=== PATIENT | male | born 1980 ===

== ENCOUNTER 2017-01-17 17:58 | Emergency (ER) | payer BC ==
[2017-01-17 18:19] LABS: URINE APPEARANCE CLEAR; URINE BILIRUBIN NEGATIVE (NEGATIVE); URINE BLOOD LARGE (NEGATIVE); URINE COLOR YELLOW; URINE GLUCOSE (UA) NEGATIVE (NEGATIVE); URINE KETONE NEGATIVE (NEGATIVE); URINE LEUKOCYTE ESTERASE NEGATIVE (NEGATIVE); URINE NITRITE NEGATIVE (NEGATIVE); URINE PROTEIN NEGATIVE (NEGATIVE); URINE UROBILINOGEN 0.2 E.U./dL (0.20 - 1.00)
[2017-01-17] MEDS ORDERED: ONDANSETRON HCL IV 4 MG/2 ML VIAL IV ONE (18:22)
[2017-01-17] MEDS ORDERED: 0.9 % SODIUM CHLORIDE 1,000 ML BAG IV ONE (18:22)
[2017-01-17 18:23] LABS: URINE BACTERIA NONE SEEN; URINE EPITHELIAL CELLS NONE SEEN (FEW); URINE WBC NONE SEEN (0-2/hpf)
[2017-01-17] MEDS ORDERED: MORPHINE SULFATE 5 MG/ML PFS IVP ONE (18:23)
[2017-01-17] MEDS ORDERED: KETOROLAC 30 MG/ML VIAL IVP ONE (18:23)
--- NOTE | 2017-01-17 18:26 | Emergency Department Record ---
History of Present Illness - General Source: Patient Mode of Arrival: Ambulatory Limitations: No limitations - History of Present Illness Initial Comments: 36 yo male presents with right flank pain that started around 10am. Initially the pain would come and go. Now the pain is constant. It is sharp. He has some associated nausea. No visible hematuria. 2 weeks ago he had similar pain last only about 20 minutes. No history of abdominal surgery. He was seen in the [facility] care and and referred to the ED. MD Complaint: Back pain Onset/Timin -: Days(s) Similar Symptoms Previously: Yes Place: Work Radiation: Groin, Flank Severity: Severe Severity scale (1-10): 9 Quality: Aching Consistency: Constant Improves With: None Worsens With: None Context: Unknown Associated Symptoms: Denies other symptoms <BOLA PHILLIPS - Last Filed: 01/17/17 19:05> <Barbara Martínez - Last Filed: 01/17/17 19:48> - General Chief Complaint: Back Pain/Injury Stated Complaint: BACK PAIN Time Seen by Provider: 01/17/17 18:18 - Related Data Previous Rx's Medication Instructions Recorded Hydrocodone/Acetaminophen [Campbell 1 each PO Q6HR #20 tablet 01/17/17 5-325 Tablet] Tamsulosin HCl [Flomax] 0.4 mg PO DAILY #7 cap.er.24h 01/17/17 Allergies Allergy/AdvReac Type Severity Reaction Status Date / Time No Known Allergies Allergy no Verified 01/17/17 18:04 allergies Travel Screening - Travel/Exposure Within Last 30 Days Have you traveled within the last 30 days?: No <BOLA PHILLIPS - Last Filed: 01/17/17 19:05> Review of Systems Constitutional: Denies: Chills, Fever, Malaise, Weakness Eyes: Denies: Eye discharge ENT: Denies: Congestion, Throat pain Respiratory: Denies: Cough, Dyspnea, Hemoptysis, Stridor, Wheezes Cardiovascular: Denies: Chest pain, Palpitations, Syncope Endocrine: Denies: Fatigue Gastrointestinal: Reports: Abdominal pain, Nausea. Denies: Diarrhea, Vomiting Genitourinary: Denies: Dysuria, Frequency, Hematuria, Incontinence, Retention, Testicular pain, Urgency Musculoskeletal: Reports: As per HPI, Back pain. Denies: Arthralgia Skin: Denies: Bruising, Change in color, Lesions, Rash Neurological: Denies: Headache, Numbness, Vertigo, Weakness Psychiatric: Denies: Anxiety Hematological/Lymphatic: Denies: Blood Clots, Easy bleeding, Easy bruising, Swollen glands <BOLA PHILLIPS - Last Filed: 01/17/17 19:05> Past Medical History - SOCIAL HISTORY Smoking Status: Never smoker Alcohol Use: None Drug Use: None - RESPIRATORY Hx Respiratory Disorders: No - CARDIOVASCULAR Hx Cardio Disorders: No - NEURO Hx Neuro Disorders: No - GI Hx GI Disorders: No - Hx Genitourinary Disorders: No - ENDOCRINE Hx Endocrine Disorders: No - MUSCULOSKELETAL Hx Musculoskeletal Disorders: No - PSYCH Hx Psych Problems: No - HEMATOLOGY/ONCOLOGY Hx Hematology/Oncology Disorders: No <BOLA PHILLIPS - Last Filed: 01/17/17 19:05> Family Medical History Any Significant Family History?: No <BOLA PHILLIPS - Last Filed: 01/17/17 19:05> Physical Exam - General General Appearance: Alert, Oriented x3, Cooperative, No acute distress Limitations: No limitations - Head Head exam: Normal inspection - Eye Eye exam: Normal appearance, PERRL. negative: Conjunctival injection, Periorbital swelling - ENT ENT exam: Normal exam, Mucous membranes moist Ear exam: Normal external inspection Nasal Exam: Normal inspection Mouth exam: Normal external inspection - Neck Neck exam: Normal inspection - Respiratory Respiratory exam: Normal lung sounds bilaterally. negative: Respiratory distress - Cardiovascular Cardiovascular Exam: Regular rate, Normal rhythm, Normal heart sounds Peripheral Pulses: 2+: Radial (R), Radial (L) - GI/Abdominal GI/Abdominal exam: Soft, Normal bowel sounds. negative: Distended, Guarding, Rebound, Rigid, Tenderness - Rectal Rectal exam: Deferred - exam: Deferred - Extremities Extremities exam: Normal inspection, Full ROM, Normal capillary refill. negative: Calf tenderness, Pedal edema, Tenderness - Back Back exam: Reports: Normal inspection, Full ROM. Denies: CVA tenderness (R), CVA tenderness (L), Muscle spasm, Paraspinal tenderness, Rash noted, Tenderness , Vertebral tenderness - Neurological Neurological exam: Alert, Normal gait, Oriented X3 - Psychiatric Psychiatric exam: Anxious (due to pain) - Skin Skin exam: Dry, Intact, Normal color, Warm <BOLA PHILLIPS - Last Filed: 01/17/17 19:05> Course Vital Signs 01/17/17 18:05 Temperature 97.9 F Pulse Rate 65 Respiratory 20 Rate Blood Pressure 168/108 Pulse Ox 97 - Reevaluation(s) Reevaluation #1: the UA positive for blood The case was signed out to Dr Martínez 01/17/17 19:05 <BOLA PHILLIPS - Last Filed: 01/17/17 19:05> Vital Signs 01/17/17 01/17/17 18:05 19:36 Temperature 97.9 F Pulse Rate 65 Pulse Rate [ 83 Pulse Ox Probe] Respiratory 20 20 Rate Blood Pressure 168/108 Blood Pressure 138/83 [Left Arm] Pulse Ox 97 96 <Barbara Martínez - Last Filed: 01/17/17 19:48> Medical Decision Making - Lab Data Result diagrams: 01/17/17 18:51 01/17/17 18:45 Lab Results 01/17/17 Range/Units 18:15 Urine Color Yellow Urine Appearance Clear Urine pH 5.5 (5.0-8.0) Ur Specific [place] 1.025 (1.002-1.030) Urine Protein Negative (NEGATIVE) Urine Glucose (UA) Negative (NEGATIVE) Urine Ketones Negative (NEGATIVE) Urine Blood Large H (NEGATIVE) Urine Nitrite Negative (NEGATIVE) Urine Bilirubin Negative (NEGATIVE) Urine Urobilinogen 0.2 (0.20 - 1.00) E.U./dL Ur Leukocyte Esterase Negative (NEGATIVE) <BOLA PHILLIPS - Last Filed: 01/17/17 19:05> - Lab Data Result diagrams: 01/17/17 18:51 01/17/17 18:45 Lab Results 01/17/17 01/17/17 01/17/17 Range/Units 18:15 18:45 18:51 WBC 9.1 (4.2-12.2) K/uL RBC 5.33 (4.40-5.70) M/uL Hgb 15.1 (14.0-18.0) gm/dl Hct 44.7 (42.0-52.0) % MCV 83.9 (81-97) fl MCH 28.3 (27-33) pg MCHC 33.8 (32-36) g/dl RDW 13.5 (11.5-14.5) % Plt Count 326 (130-400) K/uL MPV 9.8 (7.4-10.4) fl Gran % 71.2 (47-80) % Lymphocytes % 17.5 (16-45) % Monocytes % 10.1 H (0-9) % Eosinophils % 0.9 (0-6) % Basophils % 0.3 (0-6) % Sodium 141 (136-145) mmol/L Potassium 3.5 (3.4-4.5) mmol/L Chloride 104 (98-107) mmol/L Carbon Dioxide 22.0 (22-29) mmol/L Anion Gap 15.0 (7-16) BUN 42.4 (12.6-42.6) mg/dL Creatinine 1.0 (0.7-1.2) mg/dL Estimated GFR > 60 mL/min Random Glucose 109 (74-109) mg/dL Calcium 8.9 (8.6-10.0) mg/dL Total Bilirubin 0.20 (0.2-1.0) mg/dL Direct Bilirubin 0.2 (0-0.3) mg/dL AST 24 (10.0-50.0) U/L ALT 33 (<41) U/L Alkaline Phosphatase 91 (40-129) U/L Total Protein 7.4 (6.6-8.7) g/dL Albumin 4.6 (4.0-5.0) g/dL Lipase 33 (13-60) U/L Urine Color Yellow Urine Appearance Clear Urine pH 5.5 (5.0-8.0) Ur Specific [place] 1.025 (1.002-1.030) Urine Protein Negative (NEGATIVE) Urine Glucose (UA) Negative (NEGATIVE) Urine Ketones Negative (NEGATIVE) Urine Blood Large H (NEGATIVE) Urine Nitrite Negative (NEGATIVE) Urine Bilirubin Negative (NEGATIVE) Urine Urobilinogen 0.2 (0.20 - 1.00) E.U./dL Ur Leukocyte Esterase Negative (NEGATIVE) Urine RBC Too numerous to cnt (NONE SEEN) Urine WBC None seen (0-2/hpf) Ur Epithelial Cells None seen (FEW) Urine Bacteria None seen <Barbara Martínez - Last Filed: 01/17/17 19:48> Disposition <BOLA PHILLIPS - Last Filed: 01/17/17 19:05> Disposition: Discharge <Barbara Martínez - Last Filed: 01/17/17 19:48> Clinical Impression: Renal lithiasis Hydronephrosis Qualifiers: Hydronephrosis type: with ureteral calculous obstruction Qualified Code(s): N13.2 - Hydronephrosis with renal and ureteral calculous obstruction Disposition: Home, Self-Care Condition: (1) Good Instructions: Kidney Stones (ED), How to Strain Your Urine (ED) Additional Instructions: follow up with dr medina. return sooner if worse. push fluids. Prescriptions: Hydrocodone/Acetaminophen [Campbell 5-325 Tablet] 1 each PO Q6HR #20 tablet Tamsulosin HCl [Flomax] 0.4 mg PO DAILY #7 cap.er.24h Referrals: GONZALEZ BROWN M.D. [MEDICAL DOCTOR] - Forms: Patient Portal Access Quality - Blood Pressure Screening Does Patient Have Any of the Following: No Blood Pressure Classification: Hypertensive Reading Systolic Measurement: 168 Diastolic Measurement: 108 <BOLA PHILLIPS - Last Filed: 01/17/17 19:05> - Quality Measures Quality Measures: N/A - Blood Pressure Screening Does Patient Have Any of the Following: No Blood Pressure Classification: Hypertensive Reading Systolic Measurement: 168 Diastolic Measurement: 108 Screening for High Blood Pressure: < First Hypertensive BP, F/U Documented > [ G8950] First Hypertensive Follow-up Interventions: Follow-up with rescreen GT 1 day and LT 4 weeks. <Barbara Martínez - Last Filed: 01/17/17 19:48>
[2017-01-17 19:10] LABS: BASO % 0.3 % (0-6); EOS % 0.9 % (0-6); GRAN % 71.2 % (47-80); HEMATOCRIT 44.7 % (42.0-52.0); HEMOGLOBIN 15.1 gm/dl (14.0-18.0); LYMPH % 17.5 % (16-45); MEAN CELL VOLUME 83.9 fl (81-97); MEAN CORPUSCULAR HEMOGLOBIN 28.3 pg (27-33); MEAN CORPUSCULAR HGB CONC 33.8 g/dl (32-36); MEAN PLATELET VOLUME 9.8 fl (7.4-10.4); MONO % 10.1 % (0-9); PLATELET COUNT 326 K/uL (130-400); RED BLOOD COUNT 5.33 M/uL (4.40-5.70); RED CELL DISTRIBUTION WIDTH 13.5 % (11.5-14.5); WHITE BLOOD COUNT W/O DIFF 9.1 K/uL (4.2-12.2)
[2017-01-17 19:24] LABS: ALBUMIN 4.6 g/dL (4.0-5.0); ALKALINE PHOSPHATASE 91 U/L (40-129); ALT/SGPT 33 U/L (<41); AST/SGOT 24 U/L (10.0-50.0); BILIRUBIN,DIRECT 0.2 mg/dL (0-0.3); BLOOD UREA NITROGEN 42.4 mg/dL (12.6-42.6); EST GLOMERULAR FILTRATION RATE > 60 mL/min; GLUCOSE,RANDOM 109 mg/dL (74-109); LIPASE 33 U/L (13-60); TOTAL PROTEIN 7.4 g/dL (6.6-8.7)
--- NOTE | 2017-01-18 08:03 | CT SCAN REPORT ---
EXAM: CT OF THE ABDOMEN AND PELVIS WITHOUT CONTRAST HISTORY: LOW BACK PAIN. TECHNIQUE: Sequential axial images were obtained from the diaphragms through the ischiorectal fossa without intravenous or oral administration of contrast material. Sagittal and coronal reformatted images were performed. FINDINGS: There is a 4.8 mm stone in the proximal right ureter. This produces moderate right hydronephrosis. There is minimal perinephric fat stranding. The left kidney appears normal. The liver, gallbladder, pancreas, and spleen appear normal. The small bowel appears normal. The appendix is visualized and appears normal. The colon appears normal. The urinary bladder appears normal. IMPRESSION: 4.8 MM OBSTRUCTING CALCULUS IN THE RIGHT PROXIMAL URETER. THIS PRODUCES MODERATE RIGHT HYDRONEPHROSIS. JOB NUMBER: [id number] MTDD
== END 2017-01-17 20:15 | disposition home or self-care (01) ==
LOC: ER 17:58
DX: N13.2 Hydronephrosis with renal and ureteral calculous obstruction (principal); R11.0 Nausea
CPT/HCPCS: 99284 ×2; 96374; 96361; 83690; 85025; 80076; 80048; 81001; 74176; J1885; J2405; J2270; J7030

== ENCOUNTER 2017-01-22 08:19 | Day surgery (SDC) | payer BC ==
[2017-01-22] MEDS ORDERED: HYDROMORPHONE HCL 1MG/ML **SYRINGE IVP ONE (08:26)
[2017-01-22] MEDS ORDERED: 0.9 % SODIUM CHLORIDE 1000ML 1,000 ML IV ONE (08:26)
[2017-01-22] MEDS ORDERED: KETOROLAC 30 MG/ML VIAL IVP ONE ×2 (08:26→14:00)
[2017-01-22] MEDS ORDERED: ONDANSETRON HCL IV 4 MG/2 ML VIAL IV ONE (08:26)
--- NOTE | 2017-01-22 08:28 | Emergency Department Record ---
History of Present Illness - General Stated Complaint: KIDNEY STONE PAIN Time Seen by Provider: 01/22/17 08:20 Source: Patient, Family Mode of Arrival: Ambulatory Limitations: No limitations - History of Present Illness Initial Comments: 36 yo male presents with flank pain. He was recently diagnosed with a renal stone. He has had right sided pain for about 5 days. He was diagnosed with a 4.8 mm stone on the first visit. No fevers or chills. The pain was improved over the weekend but returned Saturday night. No retention. No incontinence. MD Complaint: Flank pain (recent renal stone) -: Days(s) Location: R Flank Radiation: R flank Migration to: R Flank Severity: Severe Quality: Aching, Sharp Improves With: Nothing Worsens With: Nothing Context: Other (Recent stone diagnosis) Associated Symptoms: Denies other symptoms - Related Data Previous Rx's Medication Instructions Recorded Tamsulosin HCl [Flomax] 0.4 mg PO DAILY #7 cap.er.24h 01/17/17 Allergies Allergy/AdvReac Type Severity Reaction Status Date / Time No Known Allergies Allergy no Verified 01/17/17 18:04 allergies Review of Systems Constitutional: Denies: Chills, Fever, Malaise, Weakness Eyes: Denies: Eye discharge ENT: Denies: Congestion, Throat pain Respiratory: Denies: Cough, Dyspnea Cardiovascular: Denies: Chest pain, Syncope Endocrine: Denies: Fatigue Gastrointestinal: Reports: As per HPI, Abdominal pain, Nausea. Denies: Diarrhea , Vomiting Genitourinary: Denies: Dysuria, Frequency, Hematuria Musculoskeletal: Reports: As per HPI, Back pain. Denies: Arthralgia Skin: Denies: Bruising, Change in color, Rash Neurological: Denies: Headache, Numbness, Weakness Psychiatric: Denies: Anxiety Hematological/Lymphatic: Denies: Blood Clots, Easy bleeding, Easy bruising, Swollen glands Past Medical History - SOCIAL HISTORY Smoking Status: Never smoker Drug Use: None - RESPIRATORY Hx Respiratory Disorders: No - CARDIOVASCULAR Hx Cardio Disorders: No - NEURO Hx Neuro Disorders: No - GI Hx GI Disorders: No - Hx Genitourinary Disorders: No - ENDOCRINE Hx Endocrine Disorders: No - MUSCULOSKELETAL Hx Musculoskeletal Disorders: No - PSYCH Hx Psych Problems: No - HEMATOLOGY/ONCOLOGY Hx Hematology/Oncology Disorders: No Physical Exam - General General Appearance: Alert, Oriented x3, Cooperative, No acute distress Limitations: No limitations - Head Head exam: Normal inspection - Eye Eye exam: Normal appearance. negative: Conjunctival injection, Periorbital swelling - ENT ENT exam: Normal exam, Mucous membranes moist Ear exam: Normal external inspection Nasal Exam: Normal inspection Mouth exam: Normal external inspection - Neck Neck exam: Normal inspection - Respiratory Respiratory exam: Normal lung sounds bilaterally. negative: Respiratory distress - Cardiovascular Cardiovascular Exam: Regular rate, Normal rhythm, Normal heart sounds Peripheral Pulses: 2+: Radial (R), Radial (L) - GI/Abdominal GI/Abdominal exam: negative: Soft - Rectal Rectal exam: Deferred - exam: Deferred - Extremities Extremities exam: Normal inspection, Full ROM, Normal capillary refill. negative: Tenderness - Back Back exam: Reports: Normal inspection, Full ROM. Denies: Muscle spasm, Rash noted, Tenderness - Neurological Neurological exam: Alert, Normal gait, Oriented X3 - Psychiatric Psychiatric exam: Normal affect, Normal mood. negative: Agitated, Anxious - Skin Skin exam: Dry, Intact, Normal color, Warm Course - Reevaluation(s) Reevaluation #1: EMR reviewed On 01/17 the patient had a 4.8mm right proximal stone Last ate 7am an apple. 01/22/17 08:33 Reevaluation #2: The CBC and BMP were reviewed WBC count is 12.7 No fever or tachycardia on the vitals 01/22/17 09:21 I discussed the XR with the radiologist. The still appears to be a stone at about the L3 level Urology will be consulted Message was left with Dr Odonnell given he has [facility] today Consult placed as well in the computer 01/22/17 09:27 The UA is negative for acute infection 01/22/17 09:[address] Odonnell of Urology. He will see the patient this afternoon for possible stent placement in the OR The OR was notified of need for cysto with right renal stent placement 01/22/17 10:45 OR time 1:30pm. 01/22/17 11:44 Medical Decision Making - Lab Data Result diagrams: 01/22/17 08:40 01/22/17 08:40 Disposition Disposition: Discharge Clinical Impression: Renal lithiasis Disposition: Still a Patient at [facility] Condition: (1) Good Time of Disposition: 16:19 Quality - Quality Measures Quality Measures: N/A - Blood Pressure Screening Blood Pressure Classification: Hypertensive Reading Systolic Measurement: 186 Diastolic Measurement: 101 Screening for High Blood Pressure: < Pre-Hypertensive BP, F/U Documented > [ G8950] Pre-Hypertensive Follow-up Interventions: Referral to alternative/primary care provider.
[2017-01-22 08:53] LABS: HEMATOCRIT 44.8 % (42.0-52.0); HEMOGLOBIN 15.4 gm/dl (14.0-18.0); MEAN CELL VOLUME 82.7 fl (81-97); MEAN CORPUSCULAR HEMOGLOBIN 28.4 pg (27-33); MEAN CORPUSCULAR HGB CONC 34.4 g/dl (32-36); MEAN PLATELET VOLUME 9.7 fl (7.4-10.4); PLATELET COUNT 322 K/uL (130-400); RED BLOOD COUNT 5.42 M/uL (4.40-5.70); WHITE BLOOD COUNT W/O DIFF 12.7 K/uL (4.2-12.2)
[2017-01-22 09:06] LABS: PLATELET ESTIMATE NORMAL (NORMAL)
[2017-01-22 09:12] LABS: BLOOD UREA NITROGEN 28.9 mg/dL (12.6-42.6); CREATININE 1.1 mg/dL (0.7-1.2); EST GLOMERULAR FILTRATION RATE > 60 mL/min; GLUCOSE,RANDOM 119 mg/dL (74-109)
[2017-01-22 09:46] LABS: URINE APPEARANCE CLEAR; URINE BILIRUBIN NEGATIVE (NEGATIVE); URINE BLOOD TRACE-I (NEGATIVE); URINE COLOR YELLOW; URINE GLUCOSE (UA) NEGATIVE (NEGATIVE); URINE KETONE NEGATIVE (NEGATIVE); URINE LEUKOCYTE ESTERASE NEGATIVE (NEGATIVE); URINE NITRITE NEGATIVE (NEGATIVE); URINE PROTEIN NEGATIVE (NEGATIVE); URINE UROBILINOGEN 0.2 E.U./dL (0.20 - 1.00)
[2017-01-22 09:51] LABS: URINE EPITHELIAL CELLS NONE SEEN (FEW); URINE RBC 0 - 2 (NONE SEEN); URINE WBC NONE SEEN (0-2/hpf)
--- NOTE | 2017-01-22 13:22 | RADIOLOGY REPORT ---
EXAM: ABDOMEN HISTORY: PAIN. TECHNIQUE: Supine and upright views of the abdomen were performed. FINDINGS: Nonobstructed bowel gas pattern. There is increased stool throughout the colon. Findings are consistent with constipation. No evidence of free air. IMPRESSION: INCREASED STOOL THROUGHOUT THE COLON. FINDINGS ARE CONSISTENT WITH CONSTIPATION. NO EVIDENCE OF OBSTRUCTION. JOB NUMBER: [id number] MTDD
[2017-01-22] MEDS ORDERED: ONDANSETRON HCL IV 4 MG/2 ML VIAL IVP ONE (14:00)
[2017-01-22] MEDS ORDERED: LIDOCAINE 2% MDV (20MG/ML) 20ML VIAL IV ONE (14:00)
[2017-01-22] MEDS ORDERED: PROPOFOL 10 MG/ML VIAL IV ONE (14:00)
[2017-01-22] MEDS ORDERED: FENTANYL PF 100MCG/2ML VIAL IV ONE (14:00)
[2017-01-22] MEDS ORDERED: MIDAZOLAM HCL 2MG/2ML VIAL IV ONE (14:00)
[2017-01-22] MEDS ORDERED: ACETAMINOPHEN 1,000 MG/100 ML BTL IV ONE (14:39)
[2017-01-22] MEDS ORDERED: CEFAZOLIN 2 Gram 2 GM/50 ML BAG IVPB ONE (14:39)
--- NOTE | 2017-01-23 12:00 | Operative Note ---
DATE OF SURGERY: 01/22/2017 PREOPERATIVE DIAGNOSIS: Right ureteral calculus with hydronephrosis. POSTOPERATIVE DIAGNOSIS: Right ureteral calculus with hydronephrosis. OPERATION: Cystoscopy, right retrograde pyelogram, insertion of right ureteral stent, and right ureteral stone manipulation. Surgeon: Ha Odonnell M.D. Aquaculturist: None. Anesthesia: General. Indication: A 36-year-old male with a large right proximal ureteral calculus causing hydronephrosis. He originally presented to the emergency room several days ago but ultimately presented again this morning with nonresolution of his pain and severe nausea as well. Patient presents for further surgical investigation and management today. We discussed that, at this facility, placement of a stent can be performed to relieve the obstruction, help with his pain, and that would allow us to schedule him for elective removal of the stone at a later date. We discussed the procedure in great detail, including potential risks of pain, bleeding, infection, and iatrogenic injury. He understands that no guarantees can be made and agreed to proceed. PROCEDURE: Preoperative informed consent was obtained. Antibiotics were given. Sedation was administered. Patient was brought to the operating room, placed supine, and general anesthetic was given. He was placed carefully in lithotomy position with genitalia prepped and draped sterilely. Cystoscopy was performed. Urethra appears unremarkable. The prostate appears small, not obstructed. The bladder was entered and inspected systematically. No bladder abnormality was seen. The ureteral orifices had normal appearance and positioning. Retrograde injection of contrast was performed into the right ureter, and acknowledging the fine detail limitations of mobile C-arm fluoroscopy, there was an obvious filling defect seen in the mid-ureter on the right side. This was sizeable, in my estimate roughly 8-9 mm. There was proximal hydroureter and hydronephrosis seen. A glide wire was then used to negotiate beyond the stone into the right collecting system. A 26 cm Double-J stent was then advanced over the wire under fluoroscopic guidance. The stone was manipulated more proximally into the proximal ureter while this was performed, and the stent was then left in correct position proximally and distally, which was confirmed on fluoroscopy and direct visualization with the cystoscope. There was rapid movement of clear urine through the distal coil of the stent into the bladder at the end of the procedure, and the bladder was then emptied. The procedure was terminated. Patient was awakened and transferred to Recovery in stable condition. DISCHARGE INSTRUCTIONS: Patient will be discharged home, and he will be contacted to schedule elective right-sided ureteroscopy for definitive stone management. CC: William Fuentes M.D. ESTEFANY
== END 2017-01-22 15:25 | disposition home or self-care (01) ==
LOC: ER 08:19 → SUR 08:19 → ER 12:45 → SUR 12:46 → EDSTATUS 16:16
PROVIDERS: ATTEND Urology
DX: N13.2 Hydronephrosis with renal and ureteral calculous obstruction (principal)
CPT/HCPCS: 52332; 00910; 80048; 81001; 85027; 74000; 76000; C1769; J1885; J2405; J0690; J1170; 96361; 96374; 96375; 99285; J7030